=== PATIENT | male | born 1945 | race Caucasian/White ===

== ENCOUNTER 2021-09-30 07:28 | Outpatient (CLI) | payer MEDICARE, SELFPAY ==
--- NOTE | 2021-10-14 23:16 | WPDSLEEPSTUD ---
Sleep Study Date of Study: 09/30/21 Ordering Provider: Aba Oreilly, DO Interpreting Physician: Kamini Elliott MD Sleep Study Type: BiPAP Titration Height: 1.7 m Weight: 78.018 kg Body Mass Index: 26.9 Neck Circumference (inches): 16 [place]: 11 Reason for Sleep Study * 04/29/2021 Basic PSG at [facility]; AHI 54, all apneas were centrals, lowest saturation 85%; Severe central sleep apnea; patient presents for a titration * 06/18/2021 echo; EF 60%, moderate AR, RVSP 39 mmHg, mild MR, mild-mod TR Sleep History Bobby Orosco is a 76-year-old man with a diagnostic polysomnogram on April 29, 2021 at [facility] showing severe central sleep apnea with Arnoldo-Jiménez breathing. His apnea-hypopnea index was 57.3, desaturation to 85% and 12.9 minutes or 3.1% of the study spent below 88%. The patient had complaints of daytime fatigue, non restorative sleep with frequent episodes of waking during the night with difficulty returning to sleep. He occasionally awakens from sleep feeling short of breath, occasionally awakens at night with heartburn, belching or coughing. He occasionally snores and occasionally it is loud enough that others complain about it. He occasionally awakens at night gasping for breath. He frequently has breathing problems at night observed by others. He rarely sweats excessively at night or notices his heart pounding or beating irregularly at night. He occasionally falls asleep during the day, occasionally falls asleep involuntarily but never while driving. He rarely has loss of muscle tone with strong emotion. She rarely has daytime difficulties due to excessive sleepiness. He is retired. He rarely feels paralyzed on waking or falling asleep. He does not have vivid dreamlike scenes upon awakening or falling asleep and does not feel afraid to go to sleep. He does not have nightmares. He occasionally remembers his dreams and occasionally has racing thoughts. He rarely feels sad, depressed or anxious. He rarely has muscular tension. He occasionally notices parts of his body jerking. He rarely kicks at night. He occasionally has crawling and aching feelings in his legs and occasionally has leg pain during the night. He rarely has morning jaw pain. He rarely grinds his teeth during sleep. He occasionally is bothered by pain during the day, occasionally awakened by pain at night and occasionally wakes up feeling stiff in the morning. He frequently wakes up with sore or achy muscles and pain in the neck and spine. Normal bedtime is 9:30 p.m., taking 5-10 minutes to fall asleep, typically waking 1 or 2 times at night to go to the bathroom. He is able to return to sleep within 10-15 minutes. Wakes in the morning by 6:30 a.m.. His weekend schedule is the same. He estimates getting 6-7 hours of sleep at night. He takes naps in the afternoon or evening. A short nap may be refreshing. He feels better in the morning compared to other times of day. He rarely has morning headaches. Habits: Never smoked tobacco. No caffeine, alcohol or recreational drugs. [facility] Past Medical History Medical History (Updated 10/15/21 @ 00:02 by Kamini Elliott MD) Central sleep apnea Chronic pain DVT (deep venous thrombosis) History of heartburn Hypertension Surgical History Surgical History History of arthroscopic knee surgery History of hernia repair History of tonsillectomy Social History Social History (Updated 10/14/21 @ 23:26 by Kamini Elliott MD) Smoking status: Never smoker Alcohol intake: current Alcohol use details: Rare Substance use: never Medications Medications: Atenolol 25 mg a day Calcium carbonate and vitamin-D 600 mg/400 mg 1 tablet b.i.d. Ezetimibe 10 mg daily Glucosamine sulfate 500 mg 1 tablet b.i.d. Losartan potassium-hydrochlorothiazide 100-12.5 mg 1 tablet daily Multivitamin 1 daily Napoleon 3 f
[2021-10-15 00:05] VITALS: BMI 26.9
== END 2021-10-01 06:39 | disposition home or self-care (01) ==
LOC: ANHCSM 07:30
PROVIDERS: Visit Provider Internal Medicine Pulmonary Disease
DX: G47.33 Obstructive sleep apnea (adult) (pediatric) (principal); G47.31 Primary central sleep apnea; G47.61 Periodic limb movement disorder
CPT/HCPCS: 95811